=== PATIENT | female | born 1970 | race Caucasian/White ===

== ENCOUNTER 2022-05-22 14:52 | Emergency (ER) | payer BC, SELFPAY | END 2022-05-22 16:48 | disposition home or self-care (01) | LOC: CSHERS 14:52 | DX: S80.11XA Contusion of right lower leg, initial encounter (principal); J44.9 Chronic obstructive pulmonary disease, unspecified; W10.9XXA Fall (on) (from) unspecified stairs and steps, initial encounter ==